=== PATIENT | female | born 1995 | race Caucasian/White ===

== ENCOUNTER 2021-09-15 08:15 | Outpatient (CLI) | payer MEDICAID, SELFPAY ==
[2021-09-15 08:15] VITALS: BMI 23.6
[2021-09-15 08:37] VITALS: BP 123/60; PULSE 112
[2021-09-15 08:51] VITALS: BP 124/61; PULSE 94
[2021-09-15 09:06] VITALS: BP 119/59; PULSE 100
[2021-09-15 09:21] VITALS: BP 151/75; PULSE 106
[2021-09-15 09:59] VITALS: BP 151/75; PULSE 106; RESP 18
== END 2021-09-15 09:40 | disposition home or self-care (01) ==
LOC: OPOB 08:23 → OBGYN 08:26
PROVIDERS: Absent Provider Family Medicine; Family Provider Family Medicine; Visit Provider Family Medicine
DX: O16.9 Unspecified maternal hypertension, unspecified trimester (principal); Z3A.00 Weeks of gestation of pregnancy not specified
CPT/HCPCS: 59025; 99211

== ENCOUNTER 2021-10-17 19:55 | Outpatient (CLI) | payer MEDICAID, SELFPAY ==
[2021-10-17] VITALS (21 sets, daily range): BP systolic 134–152; BP diastolic 70–79; PULSE 90–108; BMI 23.6
[2021-10-18] VITALS (10 sets, daily range): BP systolic 122–144; BP diastolic 70–84; PULSE 93–109; RESP 16; TEMP 36.7; O2SAT 98
[2021-10-18] MEDS: famotidine 20 mg Tablet PO (00:16)
[2021-10-18 00:21] LABS: Urine Creatinine 36 mg/dL (28-217); Urine Protein Random 4 mg/dL
[2021-10-18] MEDS: sodium chloride 0.9% 1,000 ML 999 ML IV (00:21)
[2021-10-18 00:22] LABS: UPRO/UCREAT Ratio 0.11 mg/mg CR
--- NOTE | 2021-10-18 08:03 | P.PN_ITS ---
UNIT ASSEMBLER Subjective Subjective: Interval history: The patient presented to the hospital complaining of tightening of her abdomen. She was concerned since she is never gone into labor before. As result she came to the hospital for further evaluation. After arriving to the hospital her cervix was found to be high thick and not quite a 1. After couple of hours, her cervix made minor change. Her contractions were inconsistent. heart tones were reactive. She also had some intermittent blood pressures are elevated as well. As result a protein creatinine ratio was performed to ensure that there was no underlying preeclampsia. She had no other symptoms of preeclampsia. Thankfully, her cervix stabilized. It did not make any change manager period of about 6 hours. Labor: Station: -3 Amniotic Membrane Status: Intact Monitor Mode: External Contraction Pattern: Regular Vitals/I&O/Wt Last Vital Signs Temp 98.1 F 10/18/21 06:00 Pulse 93 10/18/21 06:00 Resp 16 10/18/21 06:00 BP 122/70 10/18/21 06:00 Pulse Ox 98 10/18/21 06:00 O2 Del Method 10/18/21 06:00 Weight last 48 hrs Weight 133 lb Physical Exam Narrative: The patient is alert. She appears comfortable. Her heart has a regular rate and rhythm with no murmurs appreciated. Lungs are clear to auscultation bilaterally. She is gravid A&P Assessment and plan (1) Irregular contractions: Thankfully, her uterine contractions eventually calmed down. After the first couple hours of her hospital stay there was no more cervical change. Her blood pressures normalized. She is to be discharged home this morning. Status: Acute (2) 37 weeks gestation of : Status: Acute Attestations Medical Necessity Statement*: The patient required more than a 4-hour stay due to early cervical change, and elevated blood pressure. She will be discharged home this morning. Coding Level of Care Code Acute Internal Communications Intern for Kerry Zaldivar Diagnoses Irregular contractions O47.9 37 weeks gestation of Z3A.37
== END 2021-10-18 08:12 | disposition home or self-care (01) ==
LOC: OPOB 20:03 → OBGYN 20:04
PROVIDERS: Visit Provider Family Medicine
DX: O47.9 False labor, unspecified (principal); Z3A.37 37 weeks gestation of pregnancy
CPT/HCPCS: 12345; 59025; 82570; 84156; 99211; J7030

== ENCOUNTER 2021-10-22 16:45 | Inpatient (IN) | payer MEDICAID, SELFPAY ==
[2021-10-22] VITALS (20 sets, daily range): BP systolic 97–133; BP diastolic 30–82; PULSE 79–98; RESP 12–18; TEMP 36.6–37.6; O2SAT 97–99; BMI 23.0
--- NOTE | 2021-10-22 15:45 | ANES.PAUD2 ---
Pre-Anesthetic Update Pre-Anesthetic Assessment: Date of Surgery/Procedure: 10/22/21 Any changes to Pre-Anesthetic Assessment?: No Last Intake: Intake Last Liquid Date 10/22/21 Last Liquid Time 12:40 Last Solid Date 10/22/21 Last Solid Time 12:40 Labs Last 48hrs: Short CBC 10/22/21 Range/Units 14:50 WBC 17.5 H (4.0-10.0) 10^3/ uL Hgb 11.8 (11.5-15.3) g/dL Hct 35.2 L (37.0-47.0) % MCV 91.7 (81-99) fl Plt Count 428 H (130-400) 10^3/c mm Neut % (Auto) 74.3 % Neut # (Auto) 13.03 H (1.8-7.7) 10^3/u L Vitals: Temperature 99.7 F H 10/22/21 14:38 Pulse Rate 93 10/22/21 15:12 Pulse Rhythm 10/22/21 14:39 Pulse Strength 3+ Normal 10/22/21 14:39 Respiratory Rate 18 10/22/21 14:47 Respiratory Effort Non-Labored 10/22/21 14:39 Respiratory Depth Normal 10/22/21 14:39 Respiratory Patter n 10/22/21 14:39 Blood Pressure 126/71 10/22/21 15:12 Oxygen Delivery Me thod 10/22/21 14:39 Exam: Pre-Anes Outpt Exam: alert, oriented x 3, clear to auscultation bilaterally and regular rate & rhythm Other Pertinent Information: Other Pertinent Information: I discussed with Doctor Flowers case of patient. Having spontaneously ruptured membrane Doctor Flowers would like to proceed at 5 pm, although the patient at at 12 pm today. I discussed with the patient and her the risk vs benefit of waiting until NPO status was at 8 hours, including discomfort from n/v, life threatening aspiration, infection. Patient elected to proceed with spinal anesthesia at 5 pm. Cardiac Studies: No Data to Display
[2021-10-22 16:00] LABS: Basophils # 0.1 10^3/uL (0.0-0.1); Basophils % 0.3 %; Eosinophils % 0.2 %; Hematocrit 35.2 % (37.0-47.0); Hemoglobin 11.8 g/dL (11.5-15.3); Lymphocytes # 2.9 10^3/uL (0.8-4.8); Lymphocytes % 16.7 %; Mean Corpuscular HGB Conc 33.5 g/dL (30.0-36.0); Mean Corpuscular Hemoglobin 30.7 pg (28.0-34.0); Mean Corpuscular Volume 91.7 fl (81-99); Monocytes # 1.4 10^3/uL (0.2-0.9); Monocytes % 7.8 %; Neutrophils # 13.03 10^3/uL (1.8-7.7); Neutrophils % 74.3 %; Nucleated Red Blood Cells % 0 %; Platelet Count 428 10^3/cmm (130-400); Red Blood Count 3.84 10^6/uL (4.1-5.3); Red Cell Distribution Width 13.5 % (12.1-15.1); White Blood Count 17.5 10^3/uL (4.0-10.0)
[2021-10-22] MEDS: famotidine 20 mg/2 mL INJ IVP (16:04)
[2021-10-22] MEDS: citric acid-sodium citrate 30 mL UDC PO (16:04)
[2021-10-22] MEDS: lactated ringers 1,000 ML 999 ML IV (16:04)
[2021-10-22] MEDS: metoclopramide 5 mg/mL SDV 2 mL 10 MG IVP (16:05)
--- NOTE | 2021-10-22 16:57 | PM.OPHPUD ---
Labor & Delivery H&P Update Date of Procedure: October 22, 2021 Date H&P Performed: 10/22/21 Changes to previous documentation: None. My patient was seen in the office just prior to coming to the hospital Admission Diagnosis: 26-year-old 3 para 2-0-0-2 at 38 weeks with a history of sections who presented with spontaneous rupture of membranes. Primary indication for procedure: Previous low transverse section, and desire for sterilization Planned procedure: Lower transverse section and bilateral tubal ligation Other information: The patient is a healthy 26-year-old female who has had an unremarkable . She has had 2 previous C-sections. She was scheduled for next week. She arrived to my office complaining of leaking fluid. Upon examination she was noted to be grossly ruptured. Nitrazine was positive. As result she was into the OB department for a low transverse section and bilateral tubal ligation. We discussed the risks of a lower transverse section as well as a bilateral tubal ligation including the risks of bleeding, infection, and damage to intra-abdominal organs. She also understands that there is an increased risk of complications due to having 2 previous sections. We also discussed the risks of a tubal ligation including a 1 and 200 chance of becoming again despite a successful tubal ligation. She had no further questions and wishes to proceed.
--- NOTE | 2021-10-22 18:42 | P.OP_ITS ---
Operative Report Date of procedure: October 22, 2021 Pre-op diagnosis: 1. 26-year-old 3 para 2-0-0-2 at 38 weeks with spontaneous rupture membranes. 2. History of section with desired repeat 3. Desires sterilization Post-op diagnosis: same Procedure done: 1. Repeat lower transverse section 2. Intraoperative bilateral tube ligation using a modified Central technique Specimens removed/disposition: 1. Male infant with a weight of 5 pounds 6 ounces Apgars of 8 and 9 2. Placenta with a three-vessel cord delivered intact 3. Bilateral fallopian tube segments with the right segment being tagged Pathology: Bilateral fallopian tube segments with the right segment being tagged Surgeon: Jalil Flowers Estimated blood loss (mL): 400 Complications: None Procedure: The patient was brought back to the operating room where she was prepped and draped in usual sterile fashion. Anesthesia was found to be adequate. A lower transverse skin incision was then made with a #10 blade. I then dissected down to the underlying subcutaneous tissue until arriving at the prerectal fascia. The fascia was then nicked with the scalpel bilaterally. The fascial incisions were then carried laterally with Abdul scissors. Attention was then turned to the superior aspect of the incision which was grasped with kochers and tented up away from the underlying rectus abdominis muscles. The muscles were then dissected away from the fascia manually, and later with Abdul scissors. Attention was then turned to the inferior aspect of the incision, and the fascia was dissected away from the underlying muscle in similar fashion. The rectus abdominis muscles were then spread manually. The peritoneum was entered manually. Excellent visualization of the uterus was noted. A lower transverse uterine incision was then made with a #10 blade. Upon arriving at the intrauterine cavity, the uterine incision was then extended manually. The infant was noted to be in vertex position. The baby was delivered without difficulty. After delivery of the head, the mouth and nose were suctioned at the site of the incision. There was no meconium. There was no nuchal cord. The remainder of the body was then delivered and placed on the abdomen. The cord was cut and clamped. The baby was then handed to the waiting nurse. The placenta was removed intact. The uterus was externalized. The intrauterine cavity was cleansed of any remaining debris. The uterine incision was reapproximated with 0 Vicryl in a running locked stitch in a single layer due to the thinness of the uterus, and the fact that we were going to be performing a tubal ligation. Attention was then turned to the right fallopian tube which was grasped with Rah tented up and ligated cut and cauterized in a modified Chante fashion with 0 chromic. Attention was then turned to the left fallopian tube which was also ligated cut and cauterized in similar fashion. A tear was noted on the anterior uterine wall peritoneum due to scar tissue. It was reapproximated/tacked down with 3-0 chromic with an SH needle. The uterus was replaced into the abdomen. The peritoneum was then irrigated with warm saline. I reexamined the uterine incision and found it to be hemostatic. The rectus abdominis muscles were then reapproximated using 0 Vicryl in a running stitch. The fascia was then reapproximated using 0 Vicryl in running stitch. The skin was reapproximated using keisha. A sterile dressing was placed. All counts were correct x2. Both the mother and baby were in stable condition.
[2021-10-22] MEDS: lactated ringers 1,000 ML 125 ML IV (19:32)
[2021-10-23] VITALS (13 sets, daily range): BP systolic 108–135; BP diastolic 61–82; PULSE 75–99; RESP 16–18; TEMP 36.2–36.8; O2SAT 97–99
[2021-10-23] MEDS: ketorolac 30 mg/mL INJ IVP ×3 (00:31→14:20)
--- NOTE | 2021-10-23 04:11 | PM.OBGYPN ---
DIRECTOR PAID MEDIA Subjective Subjective: Interval history: The patient has been doing well. She been breast-feeding well. Her bleeding has been within normal limits. Her pain has been well controlled. Labor: Station: -2 Monitor Mode: External Contraction Pattern: Irregular Status: Category I Vitals/I&O/Wt Last Vital Signs Temp 97.2 F L 10/23/21 02:57 Pulse 75 10/23/21 03:43 Resp 15 10/22/21 18:55 BP 120/76 10/23/21 03:43 Pulse Ox 98 10/22/21 23:15 O2 Del Method 10/22/21 23:15 10/22/21 10/22/21 10/23/21 14:59 22:59 06:59 Intake Total 1300 / 1300 Output Total 1300 / 1300 Balance 0 / 0 Weight last 48 hrs Weight 130 lb Physical Exam Narrative: She is in no acute distress Lungs are clear auscultation bilaterally Her heart has a regular rate and rhythm Her fundus is below the umbilicus and firm Her dressing is clean, dry and intact Her extremities have trace edema Urinary Catheter Management: Rose: Cath Placed During This Visit: yes Reason for Continuing Indwelling Catheter: Perioperative Use in Selected Surgeries Urinary Catheter Date of Insertion: 10/22/21 Urinary Catheter Time of Insertion: 17:25 Data : 10/22/21 14:50 A&P Assessment and plan (1) 38 weeks gestation of : Status: Acute (2) Status post : I anticipate routine post care. If she continues to do well, I will consider discharge tomorrow. Status: Acute (3) Status post tubal ligation: Status: Acute Attestations Medical Necessity Statement*: Routine post care Coding Level of Care Code Acute Word Processor Technician for Chg Fwd Diagnoses 38 weeks gestation of Z3A.38 Status post Z98.891 Status post tubal ligation Z98.51
[2021-10-23] MEDS: lactated ringers 1,000 ML 125 ML IV (05:48)
[2021-10-23 06:07] LABS: Hematocrit 24.8 % (37.0-47.0); Hemoglobin 8.1 g/dL (11.5-15.3); Mean Corpuscular HGB Conc 32.7 g/dL (30.0-36.0); Mean Corpuscular Hemoglobin 30.3 pg (28.0-34.0); Mean Corpuscular Volume 92.9 fl (81-99); Mean Platelet Volume 8.8 fL (7.4-10.4); Platelet Count 289 10^3/cmm (130-400); Red Blood Count 2.67 10^6/uL (4.1-5.3); Red Cell Distribution Width 13.4 % (12.1-15.1); White Blood Count 18.8 10^3/uL (4.0-10.0)
--- NOTE | 2021-10-23 06:09 | ANE.PACU2 ---
Inpatient post-anesthesia follow up: Airway intact: Yes Vital signs: Temperature 97.2 F Pulse Rate 75 Respiratory Rate 15 Blood Pressure 120/76 Pulse Oximetry 98 Oxygen Delivery Me thod Room Air Oxygen Flow Rate Fraction of Inspir ed Oxygen Hydration adequate: Yes Nausea and vomiting: No Pain level: 1 Mental status: Baseline
--- NOTE | 2021-10-23 07:58 | PC.NURSE ---
This nurse and Honorio weighed patients blue chuxs collected throughout this nurses shift at 0555, 2 blue chux weighed. blood loss from #1 equaled 125 blood loss from #2 equaled 80
[2021-10-23] MEDS: ferrous sulfate EC 325 mg Tablet PO (09:39)
[2021-10-23] MEDS: prenatal vitamin Capsule 1 CAP PO (09:39)
[2021-10-23] MEDS: docusate sodium 100 mg Capsule PO ×2 (09:39→21:46)
[2021-10-23 14:19] LABS: Hematocrit 23.3 % (37.0-47.0); Hemoglobin 7.9 g/dL (11.5-15.3); Mean Corpuscular HGB Conc 33.9 g/dL (30.0-36.0); Mean Corpuscular Hemoglobin 29.9 pg (28.0-34.0); Mean Corpuscular Volume 88.3 fl (81-99); Platelet Count 294 10^3/cmm (130-400); Red Blood Count 2.64 10^6/uL (4.1-5.3); Red Cell Distribution Width 13.5 % (12.1-15.1); White Blood Count 16.5 10^3/uL (4.0-10.0)
[2021-10-23] MEDS: HYDROcodone-acetaminophen 5-325 mg Tablet PO ×2 (14:20→21:45)
[2021-10-23] MEDS: ibuprofen 800 mg tablet PO (22:51)
[2021-10-24 04:00] VITALS: BP 105/68; PULSE 91; RESP 16; TEMP 36.9
[2021-10-24] MEDS: HYDROcodone-acetaminophen 5-325 mg Tablet PO ×2 (05:52→12:22)
[2021-10-24] MEDS: ferrous sulfate EC 325 mg Tablet PO (08:36)
[2021-10-24] MEDS: prenatal vitamin Capsule 1 CAP PO (08:36)
[2021-10-24] MEDS: docusate sodium 100 mg Capsule PO (08:37)
[2021-10-24] MEDS: ibuprofen 800 mg tablet PO (08:37)
[2021-10-24 08:45] VITALS: BP 125/77; PULSE 103; RESP 16; TEMP 36.9
--- NOTE | 2021-10-24 10:49 | PM.OBGYDC ---
Discharge Providers ELASTIC ATTACHER CHAINSTITCH Date of Admission: 10/22/21 16:45 Date of Discharge: 10/24/21 Attending Provider at Admission: Jalil Flowers MD Attending Provider at Discharge: Jalil Flowers MD Diagnoses at Discharge Discharge Diagnosis (1) 38 weeks gestation of : Status: Acute (2) Status post : Status: Acute (3) Status post tubal ligation: Status: Acute Reason for Visit Reason for Visit: [facility] Hospital Course Hospital Course The patient presented to the hospital for a repeat section after it was noted that she had grossly ruptured membranes. The was performed as well as a bilateral tubal ligation. There were no complications. Her course was also unremarkable. Her hemoglobin did drop to 8.1 post surgery. The following day was noted to be 7.9. Her bleeding was within normal limits. Her pain was well controlled. She breast-fed well. There were no concerns. Information Peripartum Data: Infant Delivery Method: Physical Exam Narrative: The patient is alert. She appears comfortable. Her heart has a regular rate and rhythm with no murmurs appreciated. Lungs are clear to auscultation bilaterally. Her fundus is firm and below the umbilicus. Urinary Catheter Management: Rose: Cath Placed During This Visit: yes, but has since been removed by the nurse Reason for Continuing Indwelling Catheter: Decision to DC Catheter Urinary Catheter Date of Insertion: 10/22/21 Urinary Catheter Time of Insertion: 17:25 Date Urinary Catheter Removed: 10/23/21 Time Urinary Catheter Discontinued: 14:15 Discharge Data Studies Completed and Pending Pending at discharge Category Date Time Status Pathology: Surgical [PTH] Routine Pth 10/22/21 19:48 Received Laboratory Results WBC 16.5 10^3/uL (4.0-10.0) H 10/23/21 14:00 Corrected WBC Product Support Sales Representative 10/23/21 14:00 RBC 2.64 10^6/uL (4.1-5.3) L 10/23/21 14:00 Hgb 7.9 g/dL (11.5-15.3) L 10/23/21 14:00 Hct 23.3 % (37.0-47.0) L 10/23/21 14:00 MCV 88.3 fl (81-99) 10/23/21 14:00 MCH 29.9 pg (28.0-34.0) 10/23/21 14:00 MCHC 33.9 g/dL (30.0-36.0) 10/23/21 14:00 RDW 13.5 % (12.1-15.1) 10/23/21 14:00 Plt Count 294 10^3/cmm (130-400) 10/23/21 14:00 MPV 9.0 fL (7.4-10.4) 10/23/21 14:00 Neut % (Auto) 74.3 % 10/22/21 14:50 Lymph % (Auto) 16.7 % 10/22/21 14:50 [place] % (Auto) 7.8 % 10/22/21 14:50 Eos % (Auto) 0.2 % 10/22/21 14:50 Baso % (Auto) 0.3 % 10/22/21 14:50 Neut # (Auto) 13.03 10^3/uL (1.8-7.7) H 10/22/21 14:50 Lymph # (Auto) 2.9 10^3/uL (0.8-4.8) 10/22/21 14:50 [place] # (Auto) 1.4 10^3/uL (0.2-0.9) H 10/22/21 14:50 Eos # (Auto) 0.0 10^3/uL (0.0-0.8) 10/22/21 14:50 Baso # (Auto) 0.1 10^3/uL (0.0-0.1) 10/22/21 14:50 Nucleated RBC % (auto) 0 % 10/22/21 14:50 Nucleated RBCs # 0.0 /100WBC 10/22/21 14:50 Vitals Last Vital Signs Temp 98.5 F 10/24/21 08:45 Pulse 103 H 10/24/21 08:45 Resp 16 10/24/21 08:45 BP 125/77 10/24/21 08:45 Pulse Ox 98 10/23/21 22:51 O2 Del Method 10/24/21 08:45 Discharge Plan Discharge Patient Disposition: Home Condition: Stable Prescriptions: New ibuprofen 800 mg Tablet 800 mg PO TID Qty: 45 0RF hydrocodone-acetaminophen 5-325 mg Tablet 1 tab PO Q6H PRN (Reason: Moderate To Severe Pain) Qty: 28 0RF docusate sodium 100 mg Capsule 100 mg PO BID Qty: 14 0RF Discontinued famotidine 20 mg PO PRN PRN (Reason: Heartburn) Discharge Orders: Discharge Order (Routine); Ordered 10/24/21 Ordered By: Jalil Flowers Referrals: Jalil Flowers MD [Physician] - 10/27/21 7:30 am (Please notify office staff that I okayed a 730 start time) Discharge Diet: Usual diet Discharge Activity: Limit activity as instructed Patient Instructions: Opioid Safety Discharge Attestations ELASTIC ATTACHER CHAINSTITCH Time Spent in Discharge Care*: less than 30 min Coding Level of Care Code Acute Superintendent Production for Chg Fwd Diagnoses 38 weeks gestation of Z3A.38 Status post Z98.891 Status post tubal ligation Z98.51
[2021-10-24 12:15] VITALS: BP 118/76; PULSE 101; RESP 16; TEMP 36.9
== END 2021-10-24 12:35 | disposition home or self-care (01) | DRG 785 ==
LOC: OPOB 17:56 → OBGYN 17:56
PROVIDERS: Admitting Provider Family Medicine; Visit Provider Family Medicine
PROC: 10D00Z1 Extraction of Products of Conception, Low, Open Approach (ICD-10-PCS; CPT 59514; principal; 2021-10-22 17:00)
DX: O34.211 Maternal care for low transverse scar from previous cesarean delivery (principal); Z3A.38 38 weeks gestation of pregnancy; Z37.0 Single live birth; Z87.891 Personal history of nicotine dependence
CPT/HCPCS: 12345; 36415; 51702; 59025; 85025; 85027; 88302; J1885; J2274; J2765; J3490